=== PATIENT | female | born 1985 | race Caucasian/White ===

== ENCOUNTER 2017-03-18 07:08 | Emergency (ER) | payer OTHER ==
[2017-03-18 07:34] VITALS: RESP 18; TEMP 97.6
[2017-03-18] MEDS ORDERED: NORMAL SALINE 10 ML SYRINGE FLUSH IVP PRN (07:36)
[2017-03-18] MEDS ORDERED: Sodium Chloride 0.9% 1,000 ML PRIMARY IV ONE (07:36)
[2017-03-18 07:51] LABS: BASOPHILS % (AUTO) 1.5 % (0-1); EOSINOPHILS # (AUTO) 0.06 10*3/UL; EOSINOPHILS % (AUTO) 0.9 % (0-8); HEMOGLOBIN 14.2 g/dL (12.0-16.0); LYMPHOCYTES # (AUTO) 1.37 10*3/uL; MEAN CORPUSCULAR HGB CONC 33.8 g/dL (33-37); MEAN CORPUSCULAR VOLUME 94.6 FL (81-99); MONOCYTES # (AUTO) 0.63 10*3/UL (0.3-0.8); MONOCYTES % (AUTO) 9.3 % (5-15); NEUTROPHILS # (AUTO) 4.58 10*3/UL; NEUTROPHILS % (AUTO) 67.7 % (50-80); RED BLOOD COUNT 4.44 10^6/uL (4.20-5.40)
[2017-03-18 07:53] LABS: PLATELET MORPHOLOGY COMMENT NORMAL MORPHOLOGY (NORM); RBC MORPHOLOGY COMMENT NORMAL MORPHOLOGY (NORM); WBC MORPHOLOGY COMMENT NORMAL MORPHOLOGY (NORM)
[2017-03-18 08:13] LABS: BLOOD UREA NITROGEN 12 mg/dL (7-22); CALCIUM 9.2 mg/dL (8.7-10.7); EST GLOMERULAR FILTRATION > 60 (>60 ml/min/1.73m(2))
--- NOTE | 2017-03-18 08:56 | EKG ---
[address] [address] Measurements Intervals [place] Rate: 53 P: 9 MT: 105 QRS: 67 QRSD: 89 T: 42 QT: 455 QTc: 439 Interpretive Statements SINUS BRADYCARDIA WITH SHORT MT INTERVAL No previous ECG available for comparison Electronically Signed On 03-18-17 13:00:33 MDT by Adrian Young [email or web address]
--- NOTE | 2017-03-18 09:01 | DI ---
History: Trauma Comparison: None Findings: No prevertebral soft tissue swelling No compression fracture No spondylolisthesis No facet malalignment Transverse foramina intact throughout the cervical spine. Lateral masses align normally. Dense intact Impression: Unremarkable CT scan of the cervical spine
--- NOTE | 2017-03-18 09:01 | DI ---
History: Trauma. Possible seizure. Comparison: None Findings: The ventricles and sulci are normal in size and configuration. No space-occupying lesion No hemorrhage. No extra-axial fluid collection. No depressed skull fracture. Paranasal sinuses and mastoid cells are well aerated. Impression Unremarkable CT scan of the head
--- NOTE | 2017-03-18 09:09 | PDOC ---
General Adult HPI - General Chief Complaint: Fall Stated Complaint: FALL/DIZZY/HEAD ABRASION Date Seen by Provider: 03/18/17 Time Seen by Provider: 07:20 Source: POSITIVE: Patient, Spouse, EMS Exam Limitations: POSITIVE: No limitations Nurse's Notes Reviewed & Considered: Yes EMS Report Reviewed & Considered: Verbal - History of Present Illness Initial Comment: The patient is a 31-year-old female who is brought to the emergency room by the [facility]. Patient states that around 2030 yesterday evening she was dancing with her daughter Percheron her shoulders. She lost her balance and fell and struck the right frontal area of her head on the floor. She denies any loss of consciousness. She does state that she has had a headache. He is also complains of some left paracervical neck pain. She's had nausea but no vomiting. Around 5:30 AM she was walking in her house and began to feel "real dizzy ". She lay down on the floor and may have had a brief episode of loss of consciousness. Her , who is with her at the time, does not describe any tonic-clonic activity. He does state that she was briefly unresponsive and was "snoring". Patient denies any focal sensory or motor symptoms. Patient is quite athletic and exercises daily and runs half marathons. She's on no medications except albuterol inhaler for exercise- induced asthma. She's had a tubal ligation. 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) Severity: Moderate Quality: REPORTS: "Pain" (Moderate headache and left paracervical pain) Context: REPORTS: Recent Trauma (As above) Modifying Factors: improves with: Nothing Similar Symptoms Previously: No Recent Care Received: REPORTS: Denies Any Prior Injuries Related to Current Complaint?: Yes (as above) - Patient Home Medications Home Medications: Home Medications Ascorbic Acid [Vitamin C] 2,000 mg PO tab 08/20/16 Bacillus Coagulans [Probiotic] 1 each PO QD cap 08/20/16 Biotin 1 mg PO QD tab 08/20/16 Clindamycin HCl 1 cap PO BID #20 cap 08/20/16 [place] Oil [Evening [place]] 500 mg PO QD cap 08/20/16 Multivitamin [Multi-Vitamin Daily] 1 each PO QD tab 08/20/16 - Patient Allergies Allergies/Adverse Reactions: Allergies Allergy/AdvReac Type Severity Reaction Status Date / Time Penicillins Allergy Unknown NOT Verified 03/18/17 07:21 APPLICABLE Sulfa (Sulfonamide Allergy Unknown NOT Verified 03/18/17 07:21 Antibiotics) APPLICABLE [Sulfa(Sulfonamide Antibiotics)] Past Medical History - heen HEENT History: Denies History Cardiovascular History: Denies History Respiratory History: Asthma, Other (please comment) Additional Respiratory History: EXERCISE INDUCED ASTHMA Gastrointestinal History: Denies History Genitourinary History: Denies History Endocrine History: Denies History Musculoskeletal History: Denies History Prosthesis or Implant: No Neurological History: Other (please comment) 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 Psychiatric History: Denies History History of Sexually Transmitted Diseases: No Female Reproductive History: Denies History LMP: 03/17/17 Cancer History: Denies History In Past Year Been Physically Harmed or Verbally Threatened: No History of MDRO: No History of Other Communicable Diseases: No Tobacco Use: Never Smoker Alcohol Use: Occasionally Substance Use Type: None Previous Surgical History: Yes Type / Date of Surgery: TUBAL LIGATION, TONSILS AND ADENOIDS Anesthesia Reactions: No Malignant Hyperthermia: No Significant Family History: No pertinent family hx Past Medical History Reviewed: Reviewed - No Changes ROS - Limitations ROS Limitations: No Limitations Constitution: REPORTS: Denies Symptoms Cardiovascular: REPORTS: Denies Cardiac Symptoms Respiratory: REPORTS: Denies Resp Symptoms Neurological: REPORTS: Headache, Fainting Gastrointestinal: REPORTS: Denies GI Symptoms Endocrine: REPORTS: Denies Symptoms Musculoskeletal: REPORTS: Denies MS Symptoms Genitourinary: REPORTS: Denies Symptoms Eyes: REPORTS: Denies Symptoms ENT: REPORTS: Denies Symptoms Skin: REPORTS: Denies Skin Symptoms Lympathic: REPORTS: Denies Lympathic Symptoms Immunologic: POSITIVE: Denies Symptoms Psychiatric: POSITIVE: Denies Psych Symptoms General Adult Exam - General Appearance General Appearance: POSITIVE: Alert, Cooperative, No Acute Distress. NEGATIVE: No Evidence of Trauma (Abrasion right forehead) - HEENT HEENT: POSITIVE: Head Inspection Nml, Eyes Inspection Nml, Ears Inspection Nml, Nose Inspection Nml, Oral/Dental Inspect. Nml, Pharynx Inspect. Nml, PERRL, EOMI - Pupils Pupil Size: 3 mm: Bilateral (PERRLA) - Neck Neck: POSITIVE: Thyroid Normal, Thyromegaly, Other (Mild discomfort on firm palpation left paracervical musculature) - Respiratory Respiratory: POSITIVE: No Respiratory Distress, Breath Sounds Normal, Chest Non- Tender - Cardiovascular Cardiovascular: POSITIVE: Regular Rate & Rhythm, No Murmur, No Gallop, PMI Normal Peripheral Pulses: Radial (R): 2+, Radial (L): 2+ - Abdomen Abdomen: Soft: (All Quadrants), Normal Bowel Sounds: (All Quadrants), Denies Tenderness: (All Quadrants), No Splenomegaly: (All Quadrants), No Hepatomegaly: (All Quadrants), No Guarding: (All Quadrants), No Rebound: (All Quadrants), No Palpable Pulse: (All Quadrants), No Palpabale Mass: (All Quadrants), No Distention: (All Quadrants), No Rigidity: (All Quadrants) - Back Back: POSITIVE: Normal Inspection - Skin Skin: POSITIVE: Normal Color, Warm, Dry, No Rash - Extremities Extremity: Non-Tender: (All Extremities), Normal ROM: (All Extremities), Normal Inspection: (All Extremities) - Neurological / Psychological Neurological: POSITIVE: Oriented X3, 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, Motor Normal, Sensation Normal, 5, 6 Images - Head Head: 1 - Abrasion General Adult Progress - Results Reviewed by me Xrays/CTs/US Reviewed by me: Yes Discussed with Radiologist: Yes Radiology Findings: CT scan head without contrast and cervical spine without contrast normal per radiologist Lab Results Reviewed: Yes Lab Results:: Laboratory Results 03/18/17 Range/Units 07:46 WBC 6.76 (4.8-10.8) 10^3/uL RBC 4.44 (4.20-5.40) 10^6/uL Hgb 14.2 (12.0-16.0) g/dL Hct 42.0 (37.0-47.0) % MCV 94.6 (81-99) FL MCH 32.0 H (27-31) PG MCHC 33.8 (33-37) g/dL RDW Std Deviation 42.0 (39-50) fL RDW Coeff of [place] 12.4 (11.5-14.5) % Plt Count 230 (140-350) 10*3/uL MPV 9.0 (7.4-12.2) FL Immature Gran % (Auto) 0.3 (0-5) % Neut % (Auto) 67.7 (50-80) % Lymph % (Auto) 20.3 (10-50) % [place] % (Auto) 9.3 (5-15) % Eos % (Auto) 0.9 (0-8) % Baso % (Auto) 1.5 H (0-1) % Immature Gran # (Auto) 0.02 10*3/UL Neut # (Auto) 4.58 10*3/UL Lymph # (Auto) 1.37 10*3/uL [place] # (Auto) 0.63 (0.3-0.8) 10*3/UL Eos # (Auto) 0.06 10*3/UL Baso # (Auto) 0.10 10*3/UL WBC Morphology Comment Normal morphology (NORM) Plt Morphology Comment Normal morphology (NORM) RBC Morph Comment Normal morphology (NORM) Sodium 141 (135-145) meq/L Potassium 4.6 (3.8-5.2) meq/L Chloride 108 (98-112) meq/L Carbon Dioxide 24 (23-33) meq/L Anion Gap 9 (5-20) BUN 12 (7-22) mg/dL Creatinine 0.8 (0.50-1.20) mg/dL Estimated GFR > 60 (>60 ml/min/1.73m(2)) BUN/Creatinine Ratio 15.00 (6-20) Glucose 80 (78-110) mg/dL Calculated Osmolality 290.0 (267-292) mOsm/kg Calcium 9.2 (8.7-10.7) mg/dL Total Bilirubin 0.5 (0.3-1.2) mg/dL AST 27 (8-39) IU/L ALT 33 (9-52) IU/L Alkaline Phosphatase 43 (38-126) IU/L Total Protein 6.7 (6.1-8.0) g/dL Albumin 4.0 (3.5-4.8) g/dL Globulin 2.7 (2.50-4.10) g/dL Albumin/Globulin Ratio 1.40 (1.3-2.0) mg/g Serum HCG, Qual Negative Serum Alcohol < 10 (0-10) mg/dL EKG Interpreted/Reviewed By Me:: Yes (sinus bradycardia with a heart rate of 53) EKG Interpretation:: POSITIVE: Normal Intervals, Normal [place], Normal QRS, Normal ST/T. NEGATIVE: Normal Sinus Rhythm (Sinus bradycardia with heart rate of 53), Normal Rate (53/m) - Patient's Progress Pain Medication Addressed: POSITIVE: Yes (Recommended Tylenol for discomfort) School/Work Release Addressed: POSITIVE: Yes (Rest for the next 24 hours) Re-Examine Time: 08:58 Re-Examine Comment: Radiologic studies and laboratory studies results discussed with patient and her . Patient has minimal headache at this time. Alert and oriented and resting comfortably. Status: POSITIVE: Unchanged, Re-Examined Antibiotics Given: No CVA/Syncope: POSITIVE: EKG - Consult Counseled: POSITIVE: Patient, Family, RE: Lab Results, RE: Radiology Results, RE : DX, RE: Need for F/U Patient Care Time - Estimated PCT Patient Care Time (In Minutes): 50 Vital Signs - Recent Vital Signs Vital Signs: Vital Signs (Last 8 hours) Temp Pulse Resp BP Pulse Ox 03/18/17 07:23 97.6 F 70 18 103/70 99 - VS Reviewed Vital Signs Reviewed: Yes Discharge Clinical Impression: Concussion Discharge Disposition: Discharged to Home Condition: Fair Patient Instructions Given at Discharge: Concussion (ED) Additional Instructions: I believe you most likely had a cerebral concussion from your head trauma. CAT scan of your head and neck is normal, however. Blood tests and electrocardiogram are also normal. Please rest for the rest of the day. Tylenol for headache or discomfort. I would avoid exercising for 2-3 days. Return here anytime if condition worsens in any way whatsoever. Avoid any activities were you aren't likely to sustain any type of head trauma, such as bicycle riding, for about 4 weeks. Follow Up With: NONE,NONE [Primary Care Provider] - (Instructions as above. Return here anytime if condition worsens in any way whatsoever.)
== END 2017-03-18 09:12 | disposition home or self-care (01) ==
LOC: ER 07:08
DX: S06.0X0A Concussion without loss of consciousness, initial encounter (principal); M54.2 Cervicalgia; R42 Dizziness and giddiness; R51 Headache; W01.198A Fall on same level from slipping, tripping and stumbling with subsequent striking against other object, initial encounter
CPT/HCPCS: 36415; 70450; 72125; 80053; 80320; 84703; 85025; 93005; 93010; 99283